=== PATIENT | female | born 1970 | race Caucasian/White ===

== ENCOUNTER 2020-10-10 11:35 | Emergency (ER) | payer OTHER ==
[~2020-10-10] VITALS: Ht 167.6 cm; Wt 101.0 kg
[2020-10-10 11:35] VITALS: BP 138/73
--- NOTE | 2020-10-10 11:55 | PHYS DOC ---
Past History Past Medical History: No Pertinent History Adult General Chief Complaint Chief Complaint: SHORTNESS OF BREATH HPI HPI Patient is a 50-year-old female presenting for shortness of breath. 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 Patient reports prophylactically quarantining herself but started becoming symptomatic herself 10 days ago. Reports upper respiratory tract symptoms and loss of taste and smell. Patient reports being febrile with T-max 102 recorded 4 days ago. She has been taking Tylenol as needed for fever control. Reports improvement in overall symptoms but continues to be short of breath and "exhausted with everything I do ". No prior medical history, no medications on a daily basis, no exogenous estrogen use or history of blood clots, no hemoptysis, lower extremity edema Review of Systems Review of Systems Fourteen body systems of review of systems have been reviewed. See HPI for pertinent positives and negative responses, other patrick all other systems are negative, non-pertinent or non-contributory Physical Exam Physical Exam Constitutional: Well developed, well nourished, no acute distress, non-toxic appearance. HENT: Normocephalic, atraumatic, bilateral external ears normal, oropharynx moist, no oral exudates, nose normal. Eyes: PERRLA, EOMI, conjunctiva normal, no discharge. Neck: Normal range of motion, no tenderness, supple, no stridor. Cardiovascular: Heart rate regular, sinus rhythm, no murmurs rubs or gallops Lungs & Thorax: Normal work of breathing, mild crackles in bilateral lung panchal without accessory muscle use, no respiratory distress Abdomen: Bowel sounds normal, soft, no tenderness, no masses, no pulsatile masses. Nonsurgical abdomen, no peritoneal signs Skin: Warm, dry, no erythema, no rash. Back: No tenderness, no CVA tenderness. Extremities: No tenderness, no cyanosis, no clubbing, ROM intact, no edema. Neurologic: Alert and oriented X 3, grossly normal motor & sensory function, no focal deficits noted. Psychologic: Affect normal, judgement normal, mood normal. Current Patient Data Vital Signs Vital Signs Date Time Temp Pulse Resp B/P (MAP) Pulse Ox O2 Delivery O2 Flow Rate FiO2 10/10/20 11:35 98.2 70 18 138/73 (94) 98 Lab Results Laboratory Tests Test 10/10/20 11:59 White Blood Count 7.2 x10^3/uL Red Blood Count 4.79 x10^6/uL Hemoglobin 14.7 g/dL Hematocrit 44.2 % Mean Corpuscular Volume 92 fL Mean Corpuscular Hemoglobin 31 pg Mean Corpuscular Hemoglobin Concent 33 g/dL Red Cell Distribution Width 13.4 % Platelet Count 255 x10^3/uL Neutrophils (%) (Auto) 80 % Lymphocytes (%) (Auto) 16 % Monocytes (%) (Auto) 4 % Eosinophils (%) (Auto) 0 % Basophils (%) (Auto) 0 % Neutrophils # (Auto) 5.8 x10^3uL Lymphocytes # (Auto) 1.1 x10^3/uL Monocytes # (Auto) 0.3 x10^3/uL Eosinophils # (Auto) 0.0 x10^3/uL Basophils # (Auto) 0.0 x10^3/uL Sodium Level 139 mmol/L Potassium Level 3.9 mmol/L Chloride Level 100 mmol/L Carbon Dioxide Level 27 mmol/L Anion Gap 12 Blood Urea Nitrogen 15 mg/dL Creatinine 0.7 mg/dL Estimated GFR (Cockcroft-Gault) 89.3 BUN/Creatinine Ratio 21 Glucose Level 121 mg/dL Calcium Level 9.3 mg/dL Total Bilirubin 0.4 mg/dL Aspartate Amino Transf (AST/SGOT) 59 U/L Alanine Aminotransferase (ALT/SGPT) 58 U/L Alkaline Phosphatase 76 U/L Troponin I Quantitative < 0.017 ng/mL Total Protein 7.7 g/dL Albumin 3.5 g/dL Albumin/Globulin Ratio 0.8 Current Medications Medications (Trade) Dose Ordered Sig/Brock Route PRN Reason Start Time Stop Time Status Last Admin Dose Admin Sodium Chloride 1,000 ml @ 1,000 mls/hr Q1H IV 10/10/20 12:00 10/10/20 12:59 DC 10/10/20 12:02 Doxycycline Hyclate (Vibra-Tab) 100 mg 1X ONCE PO 10/10/20 13:00 10/10/20 13:03 DC 10/10/20 12:59 Doxycycline Hyclate (Vibra-Tab) 100 mg STK-MED ONCE .ROUTE 10/10/20 12:56 10/10/20 13:03 DC EKG EKG EKG ordered and interpreted by me. Normal sinus rhythm with a rate of 71 bpm. Slightly prolonged QTc of 462 ms, with otherwise unremarkable intervals. No ischemia. No STEMI. Radiology/Procedures Radiology/Procedures PROCEDURE: PORTABLE CHEST 1V EXAM: XR CHEST 1V 10/10/2020 12:03 PM CLINICAL INDICATION: Shortness of breath, cough COMPARISON: None TECHNIQUE: AP view the chest FINDINGS: The heart is normal in size. Lungs are well-expanded. There are suspected ill-defined opacities in the peripheral lungs, particularly on the right. No pleural effusion or pneumothorax. No acute osseous abnormality. IMPRESSION: Suspected ill-defined pulmonary opacities, which could be seen with atypical infection. Electronically signed by: Sandra Walker MD (10/10/2020 12:10 PM) [id number] Heart Score C/O Chest Pain: No HEART Score for Chest Pain: HEART Score for Chest Pain Response (Comments) Value History Slighlty/Non-Suspicious 0 ECG Normal 0 Age >45 - < 65 1 Risk Factors 1 or 2 Risk Factors 1 Troponin < Normal Limit 0 Total 2 Risk Factors: Risk Factors: DM, Current or recent (<one month) smoker, HTN, HLP, family history of CAD, obesity. Risk Scores: Risk Factors: DM, Current or recent (<one month) smoker, HTN, HLP, family history of CAD, obesity. Course & Med Decision Making Course & Med Decision Making Hemodynamically stable patient with history and physical exam concerning for COVID-19 infection versus other respiratory pathology Comprehensive ER work-up obtained and concerning for atypical pneumonia infection Discussed little indication for further diagnostic work-up and/or hospital admission. Discussed need for outpatient antibiotic use, continued supportive care and home quarantining until it is safe to be seen for repeat evaluation in outpatient setting Patient given doxycycline and tolerated this well, she will be sent home with new prescription. Strict return precautions discussed with good understanding by patient, all questions and concerns addressed prior to ER departure in stable condition Dragon Disclaimer Dragon Disclaimer This electronic medical record was generated, in whole or in part, using a voice recognition dictation system. Departure Departure: Impression: Primary Impression: Atypical pneumonia Additional Impression: Person under investigation for COVID-19 Disposition: 01 DC HOME SELF CARE/HOMELESS Condition: STABLE Referrals: PCP,UNKNOWN (PCP) Patient Instructions: Pneumonia, Adult Additional Instructions: You were seen for nonspecific symptoms and findings concerning for atypical pneumonia with possible infection with COVID-19. Your physical exam was reassuring. Your chest x-ray was concerning for potential atypical pneumonia infection. We tested you for COVID-19 but this test does not come back for 1 to 2 days. In the meantime you need to quarantine yourself at home away from all other individuals, especially those who are elderly or have any other chronic health issues or an immunocompromised status. You should return to the ED if you develop worsening cough, shortness of breath, chest pain, or any other new or concerning symptoms. Alternate Tylenol and ibuprofen as needed for body aches and pain. If your test does come back positive you need to quarantine yourself for 10 days until symptom-free. You should make sure to drink plenty of fluids and get plenty of rest. Scripts Doxycycline Hyclate (DOXYCYCLINE HYCLATE) 100 Mg Tablet 1 TAB PO BID for PNEUMONIA, #13 TAB Prov: VIVEK CAHVEZ DO 10/10/20 Problem Qualifiers VIVEK CHAVEZ DO Oct 10, 2020 11:55
[2020-10-10] MEDS: IV NORMAL SALINE 1,000ML 1,000 ML IV SCH (12:02)
--- NOTE | 2020-10-10 12:13 | RAD ---
EXAM: XR CHEST 1V 10/10/2020 12:03 PM CLINICAL INDICATION: Shortness of breath, cough COMPARISON: None TECHNIQUE: AP view the chest FINDINGS: The heart is normal in size. Lungs are well-expanded. There are suspected ill-defined opac ities in the peripheral lungs, particularly on the right. No pleural effusion or pneumothorax. No acu te osseous abnormality. IMPRESSION: Suspected ill-defined pulmonary opacities, which could be seen with atypical infection. Electronically signed by: Sandra Walker MD (10/10/2020 12:10 PM) [id number]
[2020-10-10 12:14] LABS: BASO % 0 % (0-3); EOS % 0 % (0-3); HEMATOCRIT 44.2 % (36.0-47.0); HEMOGLOBIN 14.7 g/dL (12.0-15.5); LYMPH # 1.1 x10^3/uL (1.0-4.8); LYMPH % 16 % (24-48); MEAN CORPUSCULAR HEMOGLOBIN 31 pg (25-35); MEAN CORPUSCULAR HGB CONC 33 g/dL (31-37); MEAN CORPUSCULAR VOLUME 92 fL (79-100); MONO # 0.3 x10^3/uL (0.0-1.1); MONO % 4 % (0-9); NEUT # 5.8 x10^3uL (1.8-7.7); NEUT % 80 % (31-73); PLATELET COUNT 255 x10^3/uL (140-400); RED BLOOD COUNT 4.79 x10^6/uL (3.50-5.40); RED CELL DISTRIBUTION WIDTH 13.4 % (11.5-14.5); WHITE BLOOD COUNT 7.2 x10^3/uL (4.0-11.0)
[2020-10-10 12:23] LABS: CALCIUM 9.3 mg/dL (8.5-10.1); CREATININE 0.7 mg/dL (0.6-1.0); GFR 89.3; POTASSIUM 3.9 mmol/L (3.5-5.1)
[2020-10-10 12:29] LABS: ALBUMIN 3.5 g/dL (3.4-5.0); ALBUMIN/GLOBULIN RATIO 0.8 (1.0-1.7); TOTAL BILIRUBIN 0.4 mg/dL (0.2-1.0); TOTAL PROTEIN 7.7 g/dL (6.4-8.2)
[2020-10-10] MEDS ORDERED: DOXY100T PO (12:53)
[2020-10-10] MEDS ORDERED: DOXYCYCLINE HYCLATE 100 MG TABLET ONE (12:56)
[2020-10-10] MEDS: DOXYCYCLINE HYCLATE 100 MG TABLET PO ONE (12:59)
--- NOTE | 2020-10-10 14:48 | EKG ---
[address] [address] Test Date: 2020-10-10 Test Time: 11:55:32 Pat Name: HIRO ALEXANDRA Department: Room: Gender: F [employer]: : 1970 Requested By: VIVEK CHAVEZ Order Number: [id number] Reading MD: Measurements Intervals [place] Rate: 71 P: 34 SD: 150 QRS: 25 QRSD: 92 T: 35 QT: 420 QTc: 462 Interpretive Statements SINUS RHYTHM NORMAL ECG RI6.02 No previous ECG available for comparison
== END 2020-10-10 13:03 | disposition home or self-care (01) ==
LOC: ER 11:35
DX: J18.9 Pneumonia, unspecified organism (principal); Z20.822 Contact with and (suspected) exposure to COVID-19; R06.02 Shortness of breath; R50.9 Fever, unspecified
CPT/HCPCS: 36415; 71045; 80053; 84484; 85025; 93005; 96360; 99285; J7030

== ENCOUNTER 2021-06-30 18:00 | Emergency (ER) | payer OTHER ==
[~2021-06-30] VITALS: Ht 167.6 cm; Wt 109.0 kg
[~2021-06-30 18:00] MED LIST: DOXY100T PO
[2021-06-30 18:33] VITALS: BP 189/95
--- NOTE | 2021-06-30 18:55 | PHYS DOC ---
Past History Past Medical History: No Pertinent History (KAJAL HOUSTON APRN) Past Surgical History: Cholecystectomy, Hysterectomy, Tonsillectomy (KAJAL HOUSTON APRN) Alcohol Use: None (KAJAL HOUSTON APRN) General Adult EDM: Chief Complaint: LOWEREXTREMITY INJURY HPI: HPI: Patient is a 51-year-old female who presents to the emergency department for a left ankle injury. Patient reports that yesterday she was running with her dog when she twisted her ankle. She is reporting most of her pain to the lateral aspect of her left ankle with swelling and ecchymosis. She denies any decreased range of motion or decreased sensation to his extremity. She has been ambulatory. (KAJAL HOUSTON APRN) Review of Systems: Review of Systems: Musculoskeletal: See HPI Integument: See HPI Neurologic: See HPI (KAJAL HOUSTON APRN) Allergies: Allergies: Allergies Coded Allergies Type Severity Reaction Last Updated Verified ampicillin Allergy Unknown 10/10/20 Yes Uncoded Allergies Type Severity Reaction Last Updated Verified CONTRAST DYE Allergy Unknown 10/10/20 (KAJAL HOUSTON APRN) Physical Exam: PE: Constitutional: Well developed, well nourished, no acute distress, non-toxic appearance. [] HENT: Normocephalic, atraumatic Eyes: PERRL, EOMI, conjunctiva normal, no discharge. [] Neck: Normal range of motion, no stridor Cardiovascular: Normal peripheral perfusion Lungs & Thorax: Normal work of breathing, no tachypnea Abdomen: Soft and flat Skin: Warm, dry, no erythema, no rash. [] Back: Normal range of motion Extremities: No tenderness, no cyanosis, no clubbing, ROM intact, no edema. Left ankle: Swelling and ecchymosis noted to lateral aspect of left ankle, pain with palpation to lateral aspect of left ankle, range of motion intact, neuro intact, no obvious deformity or open wounds Neurologic: Alert and oriented X 3, normal motor function, normal sensory function, no focal deficits noted. [] Psychologic: Affect normal, judgement normal, mood normal. [] (KAJAL HOUSTON APRN) Current Patient Data: Vital Signs: Vital Signs Date Time Temp Pulse Resp B/P (MAP) Pulse Ox O2 Delivery O2 Flow Rate FiO2 06/30/21 18:33 97.9 80 18 189/95 (126) 99 Room Air (KAJAL HOUSTON APRN) EKG: EKG: [] (KAJAL HOUSTON APRN) Radiology/Procedures: Radiology/Procedures: []PROCEDURE: ANKLE LEFT 3V Study: XR EXAM OF ANKLE_LEFT 3V Indication: Ankle injury. Pain and swelling. Comparison: None. Findings: No acute fracture is identified at the ankle or involving the partially assessed foot. The ankle mortise is symmetric noting nonweightbearing imaging. Unremarkable talar dome. Edematous soft tissues primarily at the lateral ankle. Plantar calcaneal spur. Small chronic focus of ossification at the Achilles in sertion. Impression: No acute fracture. Alignment is within normal limits considering the absence of weightbearing. Edematous soft tissues primarily at the lateral ankle. Electronically signed by: YENNY ISAAC MD (06/30/2021 7:51 PM) [facility] DICTATED AND SIGNED BY: YENNY ISAAC MD DATE: 06/30/211949 CC: NANI INGRAM MD; KAJAL HOUSTON APRN ~MTH0 0 (KAJAL HOUSTON APRN) Heart Score: C/O Chest Pain: N/A Risk Factors: Risk Factors: DM, Current or recent (<one month) smoker, HTN, HLP, family history of CAD, obesity. Risk Scores: Score 0 - 3: 2.5% MACE over next 6 weeks - Discharge Home Score 4 - 6: 20.3% MACE over next 6 weeks - Admit for Clinical Observation Score 7 - 10: 72.7% MACE over next 6 weeks - Early Invasive Strategies (KAJAL HOUSTON APRN) Course & Med Decision Making: Course & Med Decision Making Pertinent Labs and Imaging studies reviewed. (See chart for details) [] Patient presents to the emergency department for left ankle pain following twisting it yesterday. X-ray was performed that showed no acute findings. Patient's ankle placed in ankle surround splint. Patient educated on the rice protocol. Advised that she can take Tylenol and ibuprofen for pain. Advised to follow-up with her primary care provider. I discussed with patient all findings and diagnostic testing as well as the need to follow-up with PCP for further evaluation and treatment or return to the ER if any new or worsening symptoms. Strict return precautions were also discussed at length. Patient voiced understanding and agreement with the plan. Patient is hemodynamically stable at the time of disposition. (KAJAL HOUSTON APRN) Dragon Disclaimer: Dragon Disclaimer: This electronic medical record was generated, in whole or in part, using a voice recognition dictation system. (KAJAL HOUSTON APRN) Departure Departure: Impression: Primary Impression: Ankle sprain Qualified Codes: S93.402A - Sprain of unspecified ligament of left ankle, in itial encounter Disposition: HOME / SELF CARE / HOMELESS Condition: GOOD Referrals: NANI INGRAM MD (PCP) Patient Instructions: Ankle Sprain Additional Instructions: You were seen in the emergency department for left ankle pain post injury. An x-ray was performed that showed no acute findings. You likely strained your ankle. Your ankle was placed in a splint for support and comfort. Please wear this as needed.Your symptoms may be improved by something called the rice protocol. This is rest, ice, compression, elevation. Please follow-up when doing intense exercises that may make the pain worse. Sometimes gentle stretching can provide relief, but be careful to injury. It is important to perform gentle range of motion exercises to prevent stiff joints and chronic pain. Use ice packs over the affected areas to help decrease your pain. For the first 24 hours you can apply ice 20 minutes on 20 minutes off for 4 times per day. Sometimes compression such as the use of an Reed wrap can help with the swelling. You may also elevate the affected area to help with the swelling. You can also take Tylenol and ibuprofen for pain at home. Please follow-up with your primary care provider tomorrow regarding your ER visit. Please return to the emergency department if you develop any new injuries, worsening of your pain, decreased range of motion or decreased sensation in your extremity. Attending Signature Attending Signature I have participated in the care of this patient and I have reviewed and agree with all pertinent clinical information above including history, exam, and recommendations. (ELMER LAM MD) Attending Signature Attending Signature I have participated in the care of this patient and I have reviewed and agree with all pertinent clinical information above including history, exam, and recommendations. (ELMER LAM MD) KAJAL HOUSTON APRN Jun 30, 2021 18:55 ELMER LAM MD Jul 01, 2021 19:59
--- NOTE | 2021-06-30 19:54 | RAD ---
Study: XR EXAM OF ANKLE_LEFT 3V Indication: Ankle injury. Pain and swelling. Comparison: None. Findings: No acute fracture is identified at the ankle or involving the partially assessed foot. The ankle mort ise is symmetric noting nonweightbearing imaging. Unremarkable talar dome. Edematous soft tissues sarah tasia at the lateral ankle. Plantar calcaneal spur. Small chronic focus of ossification at the Achilles insertion. Impression: No acute fracture. Alignment is within normal limits considering the absence of weightbearing. Edemat ous soft tissues primarily at the lateral ankle. Electronically signed by: YENNY ISAAC MD (06/30/2021 7:51 PM) [facility]
== END 2021-06-30 20:30 | disposition home or self-care (01) ==
LOC: ER 18:00
DX: S93.402A Sprain of unspecified ligament of left ankle, initial encounter (principal); Z88.1 Allergy status to other antibiotic agents; X50.9XXA Other and unspecified overexertion or strenuous movements or postures, initial encounter; Y93.89 Activity, other specified; Y92.89 Other specified places as the place of occurrence of the external cause; Y99.8 Other external cause status
CPT/HCPCS: 73610; 99283